=== PATIENT | female | born 1940 | race Caucasian/White ===

== ENCOUNTER 2024-02-20 12:03 | Emergency (ER) | payer MEDICARE, SELFPAY ==
--- NOTE | 2024-02-20 12:10 | PC.NURSE ---
PT SENT OVER FOR AMS MORE THAN NORMAL. PT IS BEING TREATED FOR UTI BUT IS MORE COMBATIVE TODAY AND NOT EATING OR DRINKING PER STAFF. WHEN PT ARRIVED, EMS PRESENTED SNF PAPERWORK AND POLST STATED COMFORT CARE ONLY, NO SELECTIVE TREATMENT. WE CALLED DAUGHTER TO CLAIFY WHAT TREATMENT IS OK TO GIVE HER WITHOUT GOING AGAINST HER WISHES. NO ANSWER MESSAGE LEFT AT THIS TIME
--- NOTE | 2024-02-20 12:12 | PD.EDADULT ---
ED General RME/HPI General Chief complaint: Altered Mental Status Stated complaint: ALTERED MENTAL STATUS Time Seen by Provider: 02/20/24 12:07 Arrival date/time: 02/20/24 12:03 CC: Combative altered mental status HPI patient presents to the ER via EMS with a history of Parkinson's and state the patient has been more confused than usual. Documentation shows the patient was started on Rocephin for a urine infection , however there were no documentation showing a urine test. EMS report stable vital signs and route and was not warm to touch. Review of the medical records presented with the patient show that she is a DNR comfort care only. At 1238, had a lengthy discussion with the daughter, who states the assisted care facility had called her last night stating that she was acting abnormal , and that they were wanted to give her a shot of antibiotics for a urine infection . The daughter is unaware whether a urinalysis was performed. I explained to the daughter that comfort only means oxygen suctioning and monitoring. And I need to abide by her wishes or whoever filled out this documentation regarding direction of care. The daughter stated she understands and she wants to discuss the patient's condition and circumstances with another daughter and call me back regarding treatment and/or care of this patient. Related Data Home Medications ?Medication ?Instructions ?Recorded ?Confirmed donepezil 10 mg tablet 10 mg PO QDAY 02/05/20 12/01/23 levothyroxine 88 mcg tablet 100 mcg PO QDAY 02/05/20 12/01/23 divalproex 250 mg tablet,delayed 250 mg PO BID 12/01/23 12/01/23 release memantine 10 mg tablet 10 mg PO BID 12/01/23 12/01/23 mirtazapine 30 mg tablet 30 mg PO HS 12/01/23 12/01/23 quetiapine 50 mg tablet (Seroquel) 50 mg PO HS 12/01/23 12/01/23 Previous Rx's ?Medication ?Instructions ?Recorded cephalexin 500 mg capsule 500 mg PO BID #14 caps 02/20/24 Allergies Allergy/AdvReac Type Severity Reaction Status Date / Time sulfamethoxazole Allergy Unknown Rash Verified 03/07/20 15:16 trimethoprim Allergy Unknown Rash Verified 03/07/20 15:16 adhesive tape AdvReac Mild Redness Verified 03/07/20 15:16 Latex, Natural Rubber AdvReac Mild redness Verified 03/07/20 15:16 Review of Systems Review of Systems ROS Unobtainable: unobtainable due to mental status Past Medical History Past Medical History NEUROLOGIC: Positive Neurological Disorders, Dementia and Parkinson's Disease; Negative Seizures CARDIAC: Positive Cardiac Disorders and Hypertension; Negative Congestive Heart Failure RESPIRATORY: Negative Chronic Obstructive Pulmonary Disease (COPD) GASTROINTESTINAL: Positive Gastrointestinal Disorders and Hemorrhoids GENITOURINARY: Negative Genitourinary Disorders or Renal Disease MUSCULOSKELETAL: Positive Musculoskeletal Disorders ENDOCRINE: Positive Endocrine Disorders and Hypothyroidism; Negative Diabetes Mellitus Type 1 or Diabetes Mellitus Type 2 HEMATOLOGIC: Negative Blood Disorders or Anemia PSYCHO/SOCIAL: Positive Anxiety OTHER HISTORY: Negative Hospitalization, Falls, Blood Transfusions, Blood Transfusion Reaction, Anesthesia Reactions or Cancer Surgical History SURGICAL: Positive Hysterectomy Social History SMOKING STATUS: Never smoker SUBSTANCE USE: does not use ED Exam Narrative Physical exam: [General: Confused, garbled speech, appears not in any acute distress Head normocephalic HEENT: Within acceptable limits Neck is supple nontender Chest equal chest rise nontender to palpation Respiratory: Clear to auscultation no wheezes crackles or rubs CV: Rate rhythm is regular no murmurs rubs or clicks Abdomen is soft nontender no masses positive bowel sounds all 4 quadrants Skin: Intact no petechiae rash induration ulceration or crepitus Extremities: Moving all extremity against resistance cap refill less than 2 seconds neurosensory intact Neuro: Awake confused garbled speech oriented to self only.] Course Course Course Narrative: At 1330, spoke with Nahed, the daughter, who states they want limited care for this patient which includes antibiotics if necessary. However they do not want her to be intubated or compressions performed. I advised the patient and family members need to come and change her DNR status to selective care from comfort care. Quality Measures none Orders Category Date Time Status CBC Stat Lab 02/20/24 14:52 Completed CMP [Comprehensive Metabolic Panel] Stat Lab 02/20/24 14:52 Completed Urinalysis Stat Lab 02/20/24 14:52 Completed Urine Culture Stat Lab 02/20/24 14:52 Received [facility] Patient data External records reviewed:: [facility] previous records and EMS form Clinical information provided by:: EMS Social determinants that could affect healthcare access:: none Patient has the following chronic illnesses:: Parkinson's How is presenting disease/condition affected by chronic disease/condition?: uneffected by Evaluation data The following diagnostics were reviewed and interpreted by me:: lab results Lab and/or radiology exams considered but not ordered:: CBC shows no acute leukocytosis anemia thrombocytopenia CMP shows no acute electrolyte imbalances renal impairment transaminitis or T. bili elevation Urine is positive for UTI. Interpretation Summary: UTI Medications Medications considered but not ordered:: None Medication administrations:: None Consultations Consultation(s) initiated? (list below): No Diagnosis Differential Diagnosis ED Complaint MDM: UTI sepsis pyelonephritis Most likely diagnosis given after review of the tests above:: UTI Admission Indicated Admission indicated?: not indicated Explain why admission is indicated or not indicated:: Stable for discharge Admission Request Was there a request for admission?: No Disposition Plan Disposition Plan: Discharge Discharge Attestation Discharge Attestation: The patient and all family members were given an opportunity to ask questions and understood the discharge instructions. Discharge instructions specifically effects, indications for sooner follow up or return to the emergency department, and the expected course of current diagnosis. Patient condition: Stable Medical Decision Making Differential Diagnosis Differential Diagnosis: UTI sepsis pyelonephritis Lab Data 02/20/24 14:52 02/20/24 14:52 Labs: Lab Results 02/20/24 Range/Units 14:52 WBC 10.9 (3.6-11.0) Thou/mm3 RBC 3.94 L (4.00-5.20) Miln/mm3 Hgb 12.6 (12.0-16.0) g/dL Hct 38.6 (36.0-46.0) % MCV 98 (80-100) fL MCH 32.0 (25.0-35.0) pg MCHC 32.6 (31.0-37.0) g/dl RDW Std Deviation 51.8 H (36.4-46.3) fL Plt Count 324 (140-440) Thou/mm3 Neut % (Auto) 73 (37-80) % Lymph % (Auto) 17 (10-50) % Dickens % (Auto) 9 (0-12) % Eos % (Auto) 0 (0-10) % Baso % (Auto) 1 (0-2.5) % Neut # (Auto) 7.9 H (1.8-7.7) Thou/mm3 Lymph # (Auto) 1.9 (1.0-4.8) Thou/mm3 Dickens # (Auto) 1.0 H (0.0-0.8) Thou/mm3 Eos # (Auto) 0.0 (0.0-0.5) Thou/mm3 Baso # (Auto) 0.1 (0.0-0.2) Thou/mm3 Immature Gran # (Auto) 0.03 H (0.00-0.00) Thou/mm3 Absolute Nucleated RBC 0.00 (0.00-0.00) Thou/mm3 Immature Gran % 0 (0-0) % Nucleated RBC % 0 (0) /100 WBC Sodium 144 (136-145) mMol/L Potassium 4.7 (3.4-5.1) mMol/L Chloride 107 (98-107) mMol/L Carbon Dioxide 21.4 (20.0-31.0) mMol/L Anion Gap 16 (7-16) BUN 26 H (9-23) mg/dL Creatinine 1.4 H (0.6-1.3) mg/dL Estim Creat Clear Calc Not Performed. eGFR 37 L (60 - ) See Note BUN/Creatinine Ratio 19 (12-20) Ratio Glucose 98 (74-106) mg/dL Calculated Osmolality 291 (275-295) Calcium 10.2 (8.3-10.6) mg/dL Corrected Calcium 10.2 H (8.5-10.1) mg/dL Total Bilirubin 0.6 (0.3-1.2) mg/dL AST 44 H (0-34) U/L ALT 16 (10-49) U/L Alkaline Phosphatase 84 (46-116) U/L Total Protein 8.0 (5.7-8.2) gm/dL Albumin 5.0 H (3.4-4.8) gm/dL Globulin 3.0 (2.3-3.5) gm/dL Albumin/Globulin Ratio 1.7 (1.2-2.2) Ur Collection Type Catheter Urine Color Yellow (Lt Yel-Yel) Urine Clarity Hazy (Clear/Hazy) Urine pH 5.5 (5.0-7.0) Ur Specific [place] 1.027 (1.001-1.035) Urine Protein 1+ A (Neg - Trace) Urine Glucose (UA) Negative (Negative) Urine Ketones 2+ A (Negative) Urine Blood 3+ A (Negative) Urine Nitrite Negative (Negative) Urine Bilirubin Negative (Negative) Urine Urobilinogen (Auto) Negative (0.0-1.0) mg/dL Ur Leukocyte Esterase Positive (Negative) Urine RBC 174 H (0-3) /hpf Urine WBC 20 H (0-5) /hpf Ur Squamous Epith Cells < 1 (0-5) /hpf Urine Bacteria None (None) Hyaline Casts < 1 (0-1) /hpf Discharge Plan Plan Patient Disposition: HOME (Self Care) Patient condition on transfer: Stable Prescriptions/Referrals Prescriptions/Med Rec: New cephalexin 500 mg capsule 500 mg PO BID Qty: 14 0RF No Action levothyroxine 88 mcg tablet 100 mcg PO QDAY donepezil 10 mg tablet 10 mg PO QDAY divalproex 250 mg tablet,delayed release (DR/EC) 250 mg PO BID Patient Comments: TAKE 1 TABLET BY MOUTH TWICE A DAY mirtazapine 30 mg Tablet 30 mg PO HS memantine 10 mg Tablet 10 mg PO BID quetiapine [Seroquel] 50 mg Tablet 50 mg PO HS Referrals: Odalis Weeks MD [Primary Care Provider] - In 1 week Problem List Clinical Impression: Altered mental status, UTI (urinary tract infection) Patient/Caregiver Discharge Instructions Education Materials: ED CYSTITIS Female Adult Print Language: Belarusian Stand Alone Forms: Melissa Award Info., Patient Portal Info Letter PA/[employer] Supervising Physician PA/[employer] Supervising Physician: Skyler Douglas ENP
--- NOTE | 2024-02-20 12:15 | PC.NURSE ---
PATIENT BIBA FOR AMS. BASELINE GSC IS 14 AAOX2. FACILITY STATES THAT SHE WAS COMBATIVE TODAY WHICH IS ABNORMAL FOR HER. THEY FELT SHE MAY HAVE A UTI SO THEY ADMINISTERED CEFTRIAXONE X1 DOSE ON 02/19/24. PATIENT'S POLST STATES COMFORT FOCUSED TREATMENT ONLY.
--- NOTE | 2024-02-20 12:16 | PC.NURSE ---
Pt. here from [facility], per site safety coordinator Rodriguez per facility staff pt. is more combative today than usual, per facility staff they think that pt. has a UTI and started pt. on Rocephin yesterday, pt. has history of Parkinson's, hypertension and Dementia. Pt. up and talking trying to leave, pt. states she has her own Doctor that takes care of her and she doesn't need to be here. Pt. refusing vitals and refusing to get into bed in room 8. Pt. sticking her hands down her pants stating she has AIDS down there. HEATER MECHANIC bedside for pt. safety.
[2024-02-20 15:05] LABS: Basophils # (Auto) 0.1 Thou/mm3 (0.0-0.2); Basophils % (Auto) 1 % (0-2.5); Eosinophils % (Auto) 0 % (0-10); Hematocrit 38.6 % (36.0-46.0); Hemoglobin 12.6 g/dL (12.0-16.0); Immature Granulocytes % (Auto) 0 % (0-0); Immature Granulocytes Auto 0.03 Thou/mm3 (0.00-0.00); Lymphocytes # (Auto) 1.9 Thou/mm3 (1.0-4.8); Lymphocytes % (Auto) 17 % (10-50); Mean Corpuscular HGB Conc 32.6 g/dl (31.0-37.0); Mean Corpuscular Volume 98 fL (80-100); Monocytes % (Auto) 9 % (0-12); Neutrophils # (Auto) 7.9 Thou/mm3 (1.8-7.7); Neutrophils % (Auto) 73 % (37-80); Nucleated Red Blood Cell % 0 /100 WBC (0); Platelet Count 324 Thou/mm3 (140-440); RDW Standard Deviation 51.8 fL (36.4-46.3); Red Blood Count 3.94 Miln/mm3 (4.00-5.20); White Blood Count 10.9 Thou/mm3 (3.6-11.0)
[2024-02-20 15:20] LABS: Alanine Aminotransferase 16 U/L (10-49); Albumin/Globulin Ratio 1.7 (1.2-2.2); Alkaline Phosphatase 84 U/L (46-116); Anion Gap 16 (7-16); Aspartate Amino Transferase 44 U/L (0-34); BUN/Creatinine Ratio 19 Ratio (12-20); Bilirubin,Total 0.6 mg/dL (0.3-1.2); Blood Urea Nitrogen 26 mg/dL (9-23); Calcium 10.2 mg/dL (8.3-10.6); Calcium (Corrected) 10.2 mg/dL (8.5-10.1); Carbon Dioxide 21.4 mMol/L (20.0-31.0); Chloride 107 mMol/L (98-107); Creatinine (Component) 1.4 mg/dL (0.6-1.3); Glucose 98 mg/dL (74-106); Osmolality,Calculated 291 (275-295); Potassium 4.7 mMol/L (3.4-5.1); Sodium 144 mMol/L (136-145); eGFR 37 See Note
[2024-02-20 16:18] LABS: Collection Type, Urine Catheter
[2024-02-20 16:23] LABS: Bilirubin,Urine Negative (Negative); Blood,Urine 3+ (Negative); Color,Urine Yellow (Lt Yel-Yel); Glucose, Urine Negative (Negative); Hyaline Casts,Urine < 1 /hpf (0-1); Ketones,Urine 2+ (Negative); Leukocyte Esterase,Urine Positive (Negative); Nitrite,Urine Negative (Negative); PH,Urine 5.5 (5.0-7.0); Protein,Urine 1+ (Neg - Trace); RBC,Urine 174 /hpf (0-3); Specific Gravity,Urine 1.027 (1.001-1.035); Squamous Epithelial Cell,Urine < 1 /hpf (0-5); Urobilinogen,Urine Negative mg/dL (0.0-1.0); WBC,Urine 20 /hpf (0-5)
[2024-02-20 16:58] LABS: Clarity,Urine Hazy (Clear/Hazy)
[2024-02-20 18:08] VITALS: BP 148/91; PULSE 95; RESP 18; TEMP 36.9; O2SAT 97
--- NOTE | 2024-02-20 18:16 | PC.CC ---
PIER MASTER ASSISTANT CC engaged to arrange transport for pt back to [facility]. 1725-Call to [facility], pt not found in system. TIFFANY signed, and uploaded with PCS and face sheet to Susie. 1810-Call to [facility], transport ETA [id number].
--- NOTE | 2024-02-20 18:21 | PC.NURSE ---
pt.'s daughter Nahed Joya [phone] called to get report on pt. report given. Nahed states thank you.
== END 2024-02-20 21:32 | disposition home or self-care (01) ==
PROVIDERS: Registered Nurse General Practice; Emergency Provider Emergency Medicine; PCP Family Medicine
DX: N39.0 Urinary tract infection, site not specified (principal)
CPT/HCPCS: 36415; 80053; 81001; 85025; 87086; 99283